=== PATIENT | male | born 1945 | race Caucasian/White ===

== ENCOUNTER → 2016-12-22 | Outpatient (CLI) | payer OTHER ==
[~2016-12-22] MED LIST: ASPIRIN325 PO; BYSTOLIC 5 MG5 M1 PO; CHOLEST OFF PL450 MG PO; CHROMIUM PICO400 MCG PO; CO Q-10100 MG PO; CRESTOR10 MG; DILTIAZEM 24HR180 MG; ELIQUIS5 MG PO; FISH OIL 1,001000 M2 PO; FISHOIL; GLUCOSAMINE HC100 GM; GLUCOSAMINE HC500 MG PO; LIPITOR 20 MG T20 M1 PO; MEDROLDOSEPACK PO; MULTAQ 400 MG400 MG PO; MULTAQ400 MG PO; OCUVITE EYE +1 EACH PO; PREVACID 30MG C30 M1 PO; UNICOMPLEX M TA1 TA1 PO; VITAMIN D-32000 UNI1 PO
== END ==
LOC: MRI 13:53
DX: M75.101 Unspecified rotator cuff tear or rupture of right shoulder, not specified as traumatic (principal); M19.011 Primary osteoarthritis, right shoulder

== ENCOUNTER → 2016-12-28 | Outpatient (CLI) | payer OTHER | LOC: NUC 07:25 | DX: I25.119 Atherosclerotic heart disease of native coronary artery with unspecified angina pectoris (principal) ==

== ENCOUNTER → 2018-01-07 | Outpatient (CLI) | payer OTHER ==
--- NOTE | ~2018-01-07 | SLE ---
[facility] [place] [address] POLYSOMNOGRAPHY STUDY Name: SHINE LINN Room #: REG [facility]#: [id number] Admission: 01/07/18 Attend Phys: Philip Norton MD Discharge: Date of : 43 Report #: [id number] THIS REPORT FOR: //name// CC: Philip Tran MD DATE OF SERVICE: 01/07/2018 ATTENDING PHYSICIAN: Dr. Homero Tran. The patient is 72 years old who weighs 230 pounds and is 68 inches tall with a BMI of 35.0. The patient's Vivian score was 6/24. The patient has history of severe sleep apnea diagnosed previously with an AHI of 31 per hour. The patient has been on CPAP, but has intolerance to CPAP. As a result, he was referred back to [facility] for BiPAP titration study. During the night of study, the patient spent 491 minutes in bed and slept for 269 minutes with a low sleep efficiency of 55%. Sleep latency was 20.9 minutes with a REM latency of 280.9 minutes. Overall, sleep architecture showed increased stage 1 and stage 2 sleep, absent N3 sleep and normal REM sleep. During the night study, the patient's EKG monitoring revealed an average heart rate of 59 beats per minute with a maximum of 68 beats per minute. There was a 5-beat run of narrow complex tachycardia observed. Otherwise, no other arrhythmias seen. PLMS were seen at an index of 10.5 per hour and only 0.7 per hour caused EEG arousals. The patient was started on BiPAP at a pressure of 8/4, and the pressure was gradually increased to eliminate apneas, hypopneas as well as snoring. At a final BiPAP pressure of 12/7, the patient had 39 minutes of sleep. The patient had supine as well as REM sleep observed. The patient's AHI was 12.2 per hour. Per experimental technician's notes, the patient claims that he does not sleep supine at home. He did have very brief supine sleep periods during the night of study. At a BiPAP pressure of 12/6, the patient had 76 minutes of sleep including long REM period of 26.7. The patient's AHI was 0.8 per hour. However, lateral REM sleep was observed at that pressure. I would recommend the patient should be placed on an auto BiPAP at a maximum IPAP pressure of 16 cm water and a minimum EPAP pressure of 8 cm water with pressure support of 4. Oxygen saturation remained above 89% at the final BiPAP pressure. IMPRESSION: 1. Severe sleep apnea diagnosed by previous sleep study. 2. Mild PLMS without any significant EEG arousals. [place] [address] POLYSOMNOGRAPHY STUDY Name: CRYSTALJOSESHINESarah SALEH Room #: REG CL [facility]#: [id number] Admission: 01/07/18 Attend Phys: Philip Norton MD Discharge: Date of : 43 Report #: [id number]. 3. Abnormal EKG with five beat run of narrow complex tachycardia. Clinical correlation is advised. 4. Reduced sleep efficiency of 55%, resulting from sleep maintenance insomnia. RECOMMENDATIONS: 1. The patient should be placed on auto BiPAP at a maximum IPAP pressure of 16 cm water and a minimum EPAP pressure of 8 cm water with pressure support of 4. 2. Follow up in 4-6 weeks to assess compliance with BiPAP and to document clinical improvement along with review of the download data. 3. Weight loss is strongly advised. 4. Avoid [employer] depressants. 5. Cautioned regarding driving until symptoms of sleep apnea resolve with the use of BiPAP. 6. The patient's insomnia should be further evaluated if it persists despite effective use of BiPAP. 7. Follow up with Cardiology as clinically indicated. <ELECTRONICALLY SIGNED> By: Philip Norton MD 01/08/18 1836 1738 1824 Philip Norton MD /nt
== END ==
LOC: SLEEPLAB 16:16
DX: G47.33 Obstructive sleep apnea (adult) (pediatric) (principal); R94.31 Abnormal electrocardiogram [ECG] [EKG]

== ENCOUNTER → 2019-01-16 | Outpatient (CLI) | payer OTHER | LOC: NUC 11:37 | DX: I25.10 Atherosclerotic heart disease of native coronary artery without angina pectoris (principal); E78.5 Hyperlipidemia, unspecified; I10 Essential (primary) hypertension; I48.91 Unspecified atrial fibrillation; Z87.891 Personal history of nicotine dependence; Z88.8 Allergy status to other drugs, medicaments and biological substances ==

== ENCOUNTER → 2019-06-10 | Outpatient (CLI) | payer OTHER | LOC: SJCVC 14:45 | DX: I48.91 Unspecified atrial fibrillation (principal); R94.31 Abnormal electrocardiogram [ECG] [EKG]; I25.10 Atherosclerotic heart disease of native coronary artery without angina pectoris; I10 Essential (primary) hypertension; E78.5 Hyperlipidemia, unspecified ==

== ENCOUNTER → 2019-07-24 | Outpatient (CLI) | payer OTHER | LOC: SJCVC 10:18 | DX: I25.10 Atherosclerotic heart disease of native coronary artery without angina pectoris (principal); I48.0 Paroxysmal atrial fibrillation; I10 Essential (primary) hypertension; E78.00 Pure hypercholesterolemia, unspecified; M19.90 Unspecified osteoarthritis, unspecified site; Z79.82 Long term (current) use of aspirin; Z79.899 Other long term (current) drug therapy; Z87.891 Personal history of nicotine dependence ==

== ENCOUNTER → 2019-07-30 | Outpatient (CLI) | payer OTHER ==
[~2019-07-30] VITALS: Ht 172.7 cm; Wt 100.7 kg
--- NOTE | ~2019-07-30 | P ---
[facility] [place] [address] PROCEDURE REPORT Name: SHINE LINN Room #: REG [facility]#: [id number] Admission: 07/30/19 Attend Phys: Cooper Jara MD Discharge: Date of : 43 Report #: [id number] THIS REPORT FOR: cc: Shady Lopez MD, Eric K. MD Couchonnal, Luis F. MD ~ CC: Sahdy Jara PROCEDURE: Cardioversion. PREOPERATIVE DIAGNOSIS: Atrial fibrillation. POSTOPERATIVE DIAGNOSIS: Atrial fibrillation. DESCRIPTION OF PROCEDURE: The patient underwent informed consent. The patient was prepped in a standard fashion. The patient was sedated by Anesthesiology service. The patient underwent 200 joule synchronized cardioversion x 3. On the third cardioversion, the patient returned to sinus rhythm. There were no procedure related complications. CONCLUSIONS: Successful DC cardioversion with mormon of sinus rhythm. By: [id number] Cooper Jara MD /nt
[2019-07-30 08:00] VITALS: BP 127/75
[2019-07-30 08:14] LABS: ABSOLUTE NEUTROPHILS 4.3 thou/uL (1.4-8.2); BASOPHILS 0.7 % (0.0-2.0); EOSINOPHILS 5.1 % (0.0-3.0); HEMATOCRIT 44.5 % (42.0-52.0); HEMOGLOBIN 15.4 gm/dL (14.0-18.0); LYMPHOCYTES 15.7 % (24.0-44.0); MCH 32.5 pg (26.0-34.0); MCHC 34.6 g/dL (28.0-37.0); MONOCYTES 10.2 % (1.0-8.0); PLATELET COUNT 174 thou/uL (150-400); POLYS 68.3 % (36.0-66.0); RBC 4.74 mil/uL (4.50-6.00); RDW 13.1 % (10.5-14.5); WBC 6.3 thou/uL (4.0-11.0)
[2019-07-30 08:19] LABS: CALCIUM 8.5 mg/dL (8.5-10.1); POTASSIUM 4.3 mmol/L (3.5-5.1)
[2019-07-30 08:25] LABS: ALBUMIN 3.7 g/dL (3.4-5.0); TOTAL BILIRUBIN 0.6 mg/dL (<0.1-1.0); TOTAL PROTEIN 6.7 g/dL (6.4-8.2)
[2019-07-30 08:29] LABS: APTT 33.2 Seconds (24.5-32.8); INR 1.1; PROTIME 11.3 Seconds (9.3-11.4)
== END | disposition home or self-care (01) ==
LOC: CATH
PROVIDERS: Internal Medicine Cardiovascular Disease
DX: I48.91 Unspecified atrial fibrillation (principal); I25.10 Atherosclerotic heart disease of native coronary artery without angina pectoris; I10 Essential (primary) hypertension; E78.5 Hyperlipidemia, unspecified; J44.9 Chronic obstructive pulmonary disease, unspecified; Z87.891 Personal history of nicotine dependence; Z79.899 Other long term (current) drug therapy; Z79.01 Long term (current) use of anticoagulants; Z88.8 Allergy status to other drugs, medicaments and biological substances
CPT/HCPCS: 62110; 62900

== ENCOUNTER → 2019-09-12 | Outpatient (CLI) | payer OTHER | LOC: SJCVCIMAG 09:28 | PROVIDERS: ATTEND Internal Medicine Cardiovascular Disease | DX: I08.1 Rheumatic disorders of both mitral and tricuspid valves (principal); I11.9 Hypertensive heart disease without heart failure; R94.31 Abnormal electrocardiogram [ECG] [EKG]; I25.10 Atherosclerotic heart disease of native coronary artery without angina pectoris; I48.0 Paroxysmal atrial fibrillation; I10 Essential (primary) hypertension; E78.00 Pure hypercholesterolemia, unspecified; M19.90 Unspecified osteoarthritis, unspecified site; Z79.82 Long term (current) use of aspirin; Z79.899 Other long term (current) drug therapy; Z82.49 Family history of ischemic heart disease and other diseases of the circulatory system; Z87.891 Personal history of nicotine dependence ==

== ENCOUNTER → 2019-09-23 | Outpatient (CLI) | payer OTHER ==
[2019-09-23 09:21] VITALS: BP 143/77
== END | disposition home or self-care (01) ==
LOC: CATH 07:08
PROVIDERS: ATTEND Internal Medicine Cardiovascular Disease
DX: Z45.09 Encounter for adjustment and management of other cardiac device (principal); I48.19 Other persistent atrial fibrillation; I10 Essential (primary) hypertension; I25.10 Atherosclerotic heart disease of native coronary artery without angina pectoris; E78.5 Hyperlipidemia, unspecified; M19.90 Unspecified osteoarthritis, unspecified site; Z98.890 Other specified postprocedural states; Z79.899 Other long term (current) drug therapy; Z79.01 Long term (current) use of anticoagulants; Z88.8 Allergy status to other drugs, medicaments and biological substances

== ENCOUNTER → 2020-04-19 | Outpatient (CLI) | payer OTHER | LOC: SJCVC 14:54 | PROVIDERS: ATTEND Internal Medicine Cardiovascular Disease | DX: I48.91 Unspecified atrial fibrillation (principal); R94.31 Abnormal electrocardiogram [ECG] [EKG]; I25.10 Atherosclerotic heart disease of native coronary artery without angina pectoris; E78.00 Pure hypercholesterolemia, unspecified; M19.90 Unspecified osteoarthritis, unspecified site; Z82.49 Family history of ischemic heart disease and other diseases of the circulatory system; Z87.891 Personal history of nicotine dependence; Z95.5 Presence of coronary angioplasty implant and graft; Z79.82 Long term (current) use of aspirin; Z79.899 Other long term (current) drug therapy ==

== ENCOUNTER → 2020-04-28 | Outpatient (CLI) | payer OTHER | LOC: SJCVC 14:09 | PROVIDERS: ATTEND Internal Medicine Cardiovascular Disease | DX: I48.19 Other persistent atrial fibrillation (principal); R94.31 Abnormal electrocardiogram [ECG] [EKG]; I25.10 Atherosclerotic heart disease of native coronary artery without angina pectoris; I10 Essential (primary) hypertension; E78.5 Hyperlipidemia, unspecified; M19.90 Unspecified osteoarthritis, unspecified site; G47.33 Obstructive sleep apnea (adult) (pediatric); E78.00 Pure hypercholesterolemia, unspecified; Z98.61 Coronary angioplasty status; Z96.611 Presence of right artificial shoulder joint; Z95.828 Presence of other vascular implants and grafts; Z88.8 Allergy status to other drugs, medicaments and biological substances; Z79.82 Long term (current) use of aspirin; Z79.899 Other long term (current) drug therapy; Z87.891 Personal history of nicotine dependence; Z82.49 Family history of ischemic heart disease and other diseases of the circulatory system ==

== ENCOUNTER → 2020-05-31 | Outpatient (CLI) | payer OTHER | LOC: LAB 13:41 | PROVIDERS: ATTEND Internal Medicine Cardiovascular Disease | DX: Z01.812 Encounter for preprocedural laboratory examination (principal); Z20.822 Contact with and (suspected) exposure to COVID-19 ==

== ENCOUNTER 2020-06-03 06:36 | Inpatient (IN) | payer OTHER ==
[~2020-06-03] VITALS: Ht 172.7 cm; Wt 99.3 kg
[2020-06-03] VITALS (9 sets, daily range): BP systolic 107–123; BP diastolic 58–73
[2020-06-03 07:37] LABS: ABSOLUTE NEUTROPHILS 3.9 thou/uL (1.4-8.2); BASOPHILS 0.6 % (0.0-2.0); EOSINOPHILS 2.9 % (0.0-3.0); HEMATOCRIT 41.9 % (42.0-52.0); LYMPHOCYTES 18.1 % (24.0-44.0); MCH 30.8 pg (26.0-34.0); MCHC 33.5 g/dL (28.0-37.0); MONOCYTES 11.8 % (1.0-8.0); PLATELET COUNT 153 thou/uL (150-400); POLYS 66.6 % (36.0-66.0); RBC 4.56 mil/uL (4.50-6.00); RDW 13.8 % (10.5-14.5); WBC 5.9 thou/uL (4.0-11.0)
[2020-06-03 07:49] LABS: CALCIUM 8.8 mg/dL (8.5-10.1); POTASSIUM 4.3 mmol/L (3.5-5.1)
[2020-06-03 07:55] LABS: ALBUMIN 3.5 g/dL (3.4-5.0); TOTAL BILIRUBIN 0.7 mg/dL (0.2-1.0); TOTAL PROTEIN 6.5 g/dL (6.4-8.2)
[2020-06-03 07:59] LABS: APTT 25.8 Seconds (24.5-32.8); INR 1.1
[2020-06-03] MEDS ORDERED: CHROMIUM PICO400 MCG PO (14:27)
[2020-06-03] MEDS ORDERED: SUPER B COMPLE1 EAC2 PO (14:28)
[2020-06-04 00:34] VITALS: BP 106/56
[2020-06-04 03:05] VITALS: BP 124/90
[2020-06-04 08:00] VITALS: BP 112/57; BP 125/76
[2020-06-04] MEDS ORDERED: MULTAQ 400 MG400 MG PO (08:09)
[2020-06-04 09:31] LABS: HEMATOCRIT 41.2 % (42.0-52.0); HEMOGLOBIN 13.7 gm/dL (14.0-18.0); MCH 30.7 pg (26.0-34.0); MCHC 33.2 g/dL (28.0-37.0); MCV 92.6 fL (80.0-100.0); RBC 4.44 mil/uL (4.50-6.00); RDW 13.5 % (10.5-14.5); WBC 12.5 thou/uL (4.0-11.0)
[2020-06-04 09:44] LABS: CALCIUM 8.8 mg/dL (8.5-10.1); CREATININE 1.1 mg/dL (0.7-1.3); POTASSIUM 4.2 mmol/L (3.5-5.1)
[2020-06-04 12:27] VITALS: BP 123/72
[2020-06-04 15:08] LABS: URINE BLOOD 3+ (Negative); URINE CLARITY CLEAR; URINE COLOR YELLOW; URINE GLUCOSE-RANDOM* TRACE (Negative); URINE KETONES 1+ (Negative); URINE PROTEIN (DIPSTICK) 3+ (Negative); URINE SPECIFIC GRAVITY 1.015 (1.005-1.035); URINE UROBILINOGEN >= 8.0 E.U./dl (0.2-1.0)
[2020-06-04 15:14] LABS: URINE LEUKOCYTES-REFLEX 2+ (Negative); URINE NITRITE-REFLEX POSITIVE (Negative)
[2020-06-04 15:17] LABS: ICTOTEST (BILI CONFIRMATORY) Negative (Negative); URINE BILIRUBIN NEGATIVE (Negative)
[2020-06-04 15:20] LABS: BACTERIA-REFLEX 1-9 Few /HPF (None Seen); CASTS None Seen /LPF (None Seen); SQUAMOUS 0-3 Few /LPF (0-3); URINE RBC >20 Many /HPF (0-2); URINE WBC-REFLEX 6-15 Few /HPF (0-5)
[2020-06-04 15:21] LABS: CRYSTALS None Seen /LPF (None Seen); MUCUS 4-6 Moderate strn/LPF (None Seen)
[2020-06-04 16:00] VITALS: BP 114/70
[2020-06-04 19:35] VITALS: BP 112/57
[2020-06-05] VITALS (8 sets, daily range): BP systolic 98–117; BP diastolic 55–68
[2020-06-05 03:32] LABS: HEMATOCRIT 36.3 % (42.0-52.0); HEMOGLOBIN 12.1 gm/dL (14.0-18.0); MCHC 33.4 g/dL (28.0-37.0); RBC 3.9 mil/uL (4.50-6.00); RDW 13.8 % (10.5-14.5); WBC 9.1 thou/uL (4.0-11.0)
[2020-06-05 03:58] LABS: CALCIUM 8.5 mg/dL (8.5-10.1); CREATININE 1.1 mg/dL (0.7-1.3); POTASSIUM 4.1 mmol/L (3.5-5.1)
[2020-06-06] VITALS (8 sets, daily range): BP systolic 98–119; BP diastolic 57–73
[2020-06-06 03:40] LABS: HEMATOCRIT 34.9 % (42.0-52.0); HEMOGLOBIN 11.9 gm/dL (14.0-18.0); MCH 31.4 pg (26.0-34.0); MCHC 34.1 g/dL (28.0-37.0); MCV 92.1 fL (80.0-100.0); RBC 3.79 mil/uL (4.50-6.00); RDW 13.8 % (10.5-14.5); WBC 6.5 thou/uL (4.0-11.0)
[2020-06-06 03:47] LABS: CALCIUM 8.2 mg/dL (8.5-10.1); POTASSIUM 4.2 mmol/L (3.5-5.1)
[2020-06-07 04:25] VITALS: BP 118/70
--- NOTE | 2020-06-07 08:38 | P ---
[facility] [place] [address] PROCEDURE REPORT Name: SHINE LINN Room #: 200-I ADM IN .R.#: [id number] Admission: 06/04/20 Attend Phys: Cooper Jara MD Discharge: Date of : 43 Report #: [id number] THIS REPORT FOR: cc: Shady Lopez MD, Eric K. MD Couchonnal, Luis F. MD ~ DATE OF SERVICE: 06/04/2020 PREOPERATIVE DIAGNOSIS: Atrial fibrillation. POSTOPERATIVE DIAGNOSIS: Atrial fibrillation. HISTORY: The patient is a 75-year-old status post prior ablation in 2016, who has had clinical recurrence, here for repeat ablation. PROCEDURES PERFORMED: 1. Atrial fibrillation ablation, CPT code 25342. 2. 3D mapping, CPT code 69750. 3. Intracardiac echo. CPT code 72997. 4. Focal ablation, CPT code 07582. ANESTHESIA: The patient underwent general anesthesia with no anesthesia related complications. DESCRIPTION OF PROCEDURE: The patient with informed consent. We discussed the details of the procedure including the risks, which include but not limited to bleeding, vascular damage, stroke, AR, cardiac perforation. He understood these risks and is willing to proceed. The patient was brought to the EP laboratory in a fasting nonsedated state, prepped and draped in sterile fashion. I obtained access of the right femoral vein x 3, placing __ Bolivian short sheath in the left femoral vein and placed a 7-Bolivian short sheath. Under fluoroscopy, I placed a decapolar catheter easily in the coronary sinus and an ICE catheter in the right atrium using intracardiac ultrasound, I created a 3D geometry of the left atrium. There was evidence of 2 left and 2 right pulmonary veins. This was merged with the cardiac CT scan. The patient was systemically heparinized. A transseptal was performed using an SL1 sheath and a Meridian needle. This was straightforward and I exchanged the SL1 sheath for the cryo sheath. Via the cryo sheath, I placed a Pentaray mapping catheter into the left atrium and created a detailed 3D voltage map of the left atrium. This showed that all the veins were isolated except for the right superior pulmonary vein. Of note, the patient was in atrial fibrillation at the onset of the procedure with a controlled ventricular response. Next, I started by isolating the right superior pulmonary vein. This took a total of 3 freezes and isolation occurred at 180-second during the third freeze and this [address] [address] PROCEDURE REPORT Name: SHINE LINN Room #: 200-I ADM IN [facility]#: [id number] Admission: 06/04/20 Attend Phys: Cooper Jara MD Discharge: Date of : 43 Report #: [id number] freeze was continued for a period of 5 minutes. 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 Therefore, I decided to perform a posterior wall isolation using the cryoablation balloon. Five freezes were performed and anchored from the left superior pulmonary vein and 2 freezes were anchored from the right superior pulmonary vein. I then went to the left inferior pulmonary vein and performed 4 freezes along the posterior wall at this location and then anchored from the right inferior pulmonary vein and performed a single freeze along the posterior wall. Next, a repeat voltage map was created and this showed that the veins were all isolated and the posterior was also now isolated. As such, the patient was cardioverted at 200 joules with alevism of sinus rhythm and then basic EP study was performed. AV block was noted at 440 milliseconds, atrial ERP is noted at 390 milliseconds with a [address] cycle length. Atrial burst pacing down to 250 milliseconds showed no evidence of AFib or atrial flutter. As such, the procedure was concluded. Using intracardiac ultrasound to verify there was no pericardial effusion. The patient received systemic protamine. All catheters and sheaths were pulled and hemostasis was obtained. The patient awoke neurologically and hemodynamically intact. No complications. No significant bleeding. He was noted though to have blood in his urine. We will have to manage this. CONCLUSIONS: 1. Successful re-isolation of the right superior pulmonary vein. 2. Successful posterior wall isolation. <ELECTRONICALLY SIGNED> By: Cooper Jara MD 06/07/20 0838 1122 1911 Cooper Jara MD /nt
[2020-06-07 08:46] VITALS: BP 114/73
[2020-06-07] MEDS ORDERED: FLOMAX0.4 MG PO (11:09)
[2020-06-07 12:00] VITALS: BP 166/69
[2020-06-07 13:34] VITALS: BP 166/69
[2020-06-07 14:51] VITALS: BP 166/69
== END 2020-06-07 15:49 | disposition home or self-care (01) | DRG 274 ==
LOC: CATH 06:36 → 2N 13:09
PROVIDERS: Internal Medicine Cardiovascular Disease; Nurse Practitioner; Physician Assistant; ADMIT Internal Medicine Cardiovascular Disease; ATTEND Internal Medicine Cardiovascular Disease
PROC: 02583ZZ Destruction of Conduction Mechanism, Percutaneous Approach (ICD-10-PCS; principal; 2020-06-04)
PROC: 02K83ZZ Map Conduction Mechanism, Percutaneous Approach (ICD-10-PCS; principal; 2020-06-04)
DX: I48.91 Unspecified atrial fibrillation (principal); D62 Acute posthemorrhagic anemia; R31.9 Hematuria, unspecified; I25.10 Atherosclerotic heart disease of native coronary artery without angina pectoris; I10 Essential (primary) hypertension; E78.5 Hyperlipidemia, unspecified; R33.9 Retention of urine, unspecified; Z88.8 Allergy status to other drugs, medicaments and biological substances; Z95.5 Presence of coronary angioplasty implant and graft
CPT/HCPCS: 10081; 62110; 62900; 70005

== ENCOUNTER → 2020-09-02 | Outpatient (CLI) | payer OTHER ==
[~2020-09-02] MED LIST changes: +FLOMAX0.4 MG PO; +SUPER B COMPLE1 EAC2 PO
== END ==
LOC: SJCVC 13:29
PROVIDERS: ATTEND Internal Medicine Cardiovascular Disease
DX: R94.31 Abnormal electrocardiogram [ECG] [EKG] (principal); I48.91 Unspecified atrial fibrillation; I25.10 Atherosclerotic heart disease of native coronary artery without angina pectoris; I10 Essential (primary) hypertension; E78.5 Hyperlipidemia, unspecified; Z88.8 Allergy status to other drugs, medicaments and biological substances; Z79.899 Other long term (current) drug therapy; M19.90 Unspecified osteoarthritis, unspecified site; E78.00 Pure hypercholesterolemia, unspecified; G47.30 Sleep apnea, unspecified; Z82.49 Family history of ischemic heart disease and other diseases of the circulatory system; Z87.891 Personal history of nicotine dependence

== ENCOUNTER → 2020-10-18 | Outpatient (CLI) | payer OTHER | LOC: SJCVCIMAG 09:01 | PROVIDERS: ATTEND Internal Medicine Cardiovascular Disease | DX: I25.10 Atherosclerotic heart disease of native coronary artery without angina pectoris (principal); I10 Essential (primary) hypertension; E78.00 Pure hypercholesterolemia, unspecified; I48.0 Paroxysmal atrial fibrillation; G47.33 Obstructive sleep apnea (adult) (pediatric); R60.0 Localized edema; E78.5 Hyperlipidemia, unspecified; Z79.899 Other long term (current) drug therapy; Z87.891 Personal history of nicotine dependence; Z72.89 Other problems related to lifestyle; Z98.61 Coronary angioplasty status ==

== ENCOUNTER → 2020-10-25 | Outpatient (CLI) | payer OTHER ==
[~2020-10-25] VITALS: Ht 172.7 cm; Wt 101.6 kg
[~2020-10-25] MED LIST changes: +NORVASC5 MG PO; +ROSUVASTATIN CA20 MG PO
[2020-10-25 09:05] VITALS: BP 126/74
--- NOTE | 2020-10-25 12:27 | CATHLAB ---
[facility] [place] [address] INVASIVE PROCEDURE REPORT Name: SHINE LINN Room #: REG [facility]#: [id number] Admission: 10/25/20 Attend Phys: Bereket De Luna MD Discharge: Date of : 43 Report #: [id number] THIS REPORT FOR: cc: Shady Lopez MD, Eric K. MD Park, Jin S. MD ~ APPROVED REPORT Study performed: 10/25/2020 10:37:04 Patient Details Patient Status: Out-Patient Room #: The patient is a 75 year-old male Event Personnel Bereket De Luna Microbiological Lab Technician, Kendy Rueda RN RN, Lilly Yost RTR Supa Joy Jordan RTR Monitor Procedures Performed Art Access - R femoral artery* Left Heart Cath w/or w/o Coronaries [id number] [facility] [address] Initial Mod Sed Same Phys/QHP Gr5y [id number] 89570 Mod Sed Same Phys/QHP Ea [id number] Hemostasis with Manual pressure Indication Dyspnea, Positive stress test Risk Factors Hypercholesterolemia, Coronary Artery DiseaseHypertension Previous Procedures/Diagnoses Previous PCI Procedure Narrative The Right Groin^ was infiltrated with 1% Lidocaine subcutaneous anesthesia. A PINNACLE 4FR Sheath #[id number] sheath was inserted into the RFA^. Coronary angiography was performed using coronary diagnostic catheters. The right coronary system was accessed and visualized with a JR4 catheter. The left coronary system was accessed and visualized with a JL4 catheter. The left ventricle was accessed and visualized with a PIGTAIL catheter. Left ventricular/Aortic Valve gradient assessed via catheter pullback. Hemostasis was obtained with manual pressure following sheath removal without any complications. The patient tolerated the procedure well and there were no [facility] [address] [address] INVASIVE PROCEDURE REPORT Name: SHINE LINN Room #: REG [facility]#: [id number] Admission: 10/25/20 Attend Phys: Bereket De Luna MD Discharge: Date of : 43 Report #: [id number] complications associated with the procedure. There was no hematoma. Intraoperative Conscious Sedation Sedation start time: 1125 Case end Time: 1154 Fentanyl 50 mcg Versed 1 mg Fluoro Time: 2.80 minutes Dose: DAP 8548.10 cGycm2 986 mGy Contrast Type and Amount: Omnipaque 65 ml Coronary Angiography The patient's coronary anatomy is right dominant. Diagnostic Cath Left Main The left main artery is a large-caliber vessel, with mild disease proximally. LAD The LAD is a moderate-sized caliber vessel, travels down the anterior wall and wraps around the apex. There is a stent in the proximal segment, patent with mild diffuse restenosis, 20%. Diagonal 1 This is a small caliber vessel, with no flow-limiting lesions. Diagonal 2 This is a small caliber vessel, with no flow-limiting lesions. Circumflex This is a small to moderate-sized caliber vessel with mild disease in the midsegment. OM1 This is a moderate-sized caliber vessel, has a early takeoff from the left circumflex proper. There is mild disease in the proximal segment. At the distal segment, this vessel divides into multiple branches. Right Coronary The RCA is a moderate-sized caliber vessel, dominant as it supplies the PDA. This vessel is patent with mild plaquing in the midsegment, 20%. R PDA This is a moderate-sized caliber vessel, patent with no flow-limiting lesions. RPLV This is a moderate-sized caliber vessel, patent with no flow-limiting lesions. Left Ventriculography Left Ventriculography was not performed. Ejection Fraction was >55% based off patient's Nuclear Cardiac Stress Test. An LVEDP was measured and there is no gradient across the outflow tract. Hemodynamics [facility] [address] [place] [address] INVASIVE PROCEDURE REPORT Name: SHINE LINN Room #: REG [facility]#: [id number] Admission: 10/25/20 Attend Phys: Bereket De Luna MD Discharge: Date of : 43 Report #: [id number] The aortic pressure is 134/65 mmHg with a mean of 95 mmHg. The left ventricular pressure is 130/11 mmHg with a mean of mmHg. The left ventricular end diastolic pressure is 14 mmHg. Pullback from the left ventricle to the aorta revealed a mm gradient across the aortic valve. Conclusion 1. There is a patent stent in the proximal LAD with mild restenosis. 2. There is mild disease in the first obtuse marginal artery and RCA. 3. There is normal LV systolic function. 4. Recommend aggressive risk factor management. <ELECTRONICALLY SIGNED> By: Bereket De Luna MD 10/25/20 1226 1226 1226 Bereket De Luna MD /INF
== END | disposition home or self-care (01) ==
LOC: CATH 08:02
PROVIDERS: ATTEND Internal Medicine Cardiovascular Disease
DX: R94.39 Abnormal result of other cardiovascular function study (principal); I25.10 Atherosclerotic heart disease of native coronary artery without angina pectoris; R06.00 Dyspnea, unspecified; I10 Essential (primary) hypertension; E78.00 Pure hypercholesterolemia, unspecified; I48.91 Unspecified atrial fibrillation; Z98.890 Other specified postprocedural states; Z79.899 Other long term (current) drug therapy; Z79.01 Long term (current) use of anticoagulants; Z88.8 Allergy status to other drugs, medicaments and biological substances

== ENCOUNTER → 2021-01-04 | Outpatient (CLI) | payer OTHER | LOC: SJCVC 13:36 | PROVIDERS: ATTEND Internal Medicine Cardiovascular Disease | DX: R94.31 Abnormal electrocardiogram [ECG] [EKG] (principal); I47.1 Supraventricular tachycardia; I48.0 Paroxysmal atrial fibrillation; I10 Essential (primary) hypertension; E78.5 Hyperlipidemia, unspecified; Z88.8 Allergy status to other drugs, medicaments and biological substances; Z79.899 Other long term (current) drug therapy; Z72.89 Other problems related to lifestyle; Z87.891 Personal history of nicotine dependence ==